=== PATIENT | female | born 1970 | race Caucasian/White ===

== ENCOUNTER 2018-03-26 10:26 | Emergency (ER) | payer MEDICAID ==
[~2018-03-26] VITALS: Ht 162.6 cm; Wt 72.6 kg
--- NOTE | 2018-03-26 10:26 | NUR ---
PT BIBA TO ER BED 08
[2018-03-26 10:32] VITALS: BP 139/88
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
[2018-03-26] MEDS ORDERED: IBUPROFEN 400 MG TAB PO ONE (11:30)
[2018-03-26 11:55] VITALS: BP 137/86
== END 2018-03-26 11:55 | disposition home or self-care (01) ==
LOC: MED 10:26
DX: S29.012A Strain of muscle and tendon of back wall of thorax, initial encounter (principal); S80.02XA Contusion of left knee, initial encounter; S30.1XXA Contusion of abdominal wall, initial encounter; E11.9 Type 2 diabetes mellitus without complications; V49.50XA Passenger injured in collision with unspecified motor vehicles in traffic accident, initial encounter; Y93.89 Activity, other specified; Y92.411 Interstate highway as the place of occurrence of the external cause; Y99.8 Other external cause status
CPT/HCPCS: 82948; 99283